=== PATIENT | female | born 1980 | race Caucasian/White ===

== ENCOUNTER 2019-01-29 20:07 | Emergency (ER) | payer BC ==
[~2019-01-29] VITALS: Ht 170.2 cm; Wt 59.0 kg
[~2019-01-29 20:07] MED LIST: ONDA4TAB12 PO
[2019-01-29 20:09] VITALS: BP 132/84
[2019-01-29] MEDS ORDERED: PENI500T2 PO (21:28)
[2019-01-29] MEDS ORDERED: HYDR-3965 PO (21:28)
== END 2019-01-29 21:43 | disposition home or self-care (01) ==
LOC: ER 20:07
DX: K04.7 Periapical abscess without sinus (principal); K02.9 Dental caries, unspecified; F12.90 Cannabis use, unspecified, uncomplicated; Z88.1 Allergy status to other antibiotic agents
CPT/HCPCS: 99283

== ENCOUNTER 2019-02-19 20:55 | Emergency (ER) | payer BC ==
[~2019-02-19] VITALS: Ht 170.2 cm; Wt 58.6 kg
[~2019-02-19 20:55] MED LIST changes: +HYDR-3965 PO; +PENI500T2 PO
[2019-02-19 21:01] VITALS: BP 118/83
[2019-02-19] MEDS ORDERED: AMOX500C2 PO (21:28)
[2019-02-19] MEDS ORDERED: amoxicillin 250mg capsule PO ONE (21:30)
== END 2019-02-19 21:47 | disposition home or self-care (01) ==
LOC: ER 20:55
DX: K08.89 Other specified disorders of teeth and supporting structures (principal); F12.90 Cannabis use, unspecified, uncomplicated; Z79.899 Other long term (current) drug therapy
CPT/HCPCS: 99283

== ENCOUNTER 2019-02-23 17:19 | Emergency (ER) | payer BC ==
[~2019-02-23] VITALS: Ht 170.2 cm; Wt 58.6 kg
[~2019-02-23 17:19] MED LIST changes: +AMOX500C2 PO; +LIDOcaine 1% W/epiNEPHrine 1:100,000 20ml vial ONE
[2019-02-23 17:55] VITALS: BP 124/78
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
== END 2019-02-23 20:18 | disposition home or self-care (01) ==
LOC: ER 17:20
DX: K04.7 Periapical abscess without sinus (principal); F12.90 Cannabis use, unspecified, uncomplicated; Z79.2 Long term (current) use of antibiotics; Z79.899 Other long term (current) drug therapy
CPT/HCPCS: 41800; 99283